=== PATIENT | female | born 1985 | race Caucasian/White ===

== ENCOUNTER → 2017-09-18 11:06 | Outpatient (CLI) | payer MEDICAID, SELFPAY | PROVIDERS: Visit Provider Obstetrics & Gynecology | DX: R30.0 Dysuria (principal); T81.30XA Disruption of wound, unspecified, initial encounter; Y83.8 Other surgical procedures as the cause of abnormal reaction of the patient, or of later complication, without mention of misadventure at the time of the procedure; N99.81 Other intraoperative complications of genitourinary system; N13.2 Hydronephrosis with renal and ureteral calculous obstruction; R10.2 Pelvic and perineal pain; Z90.710 Acquired absence of both cervix and uterus | CPT/HCPCS: 11042; 87077; 87086; 87088; 87186; 99212; 99213; G0463 ==

== ENCOUNTER 2017-09-25 08:00 | Outpatient (RCR) | payer MEDICAID, SELFPAY ==
[2017-09-02 01:29] VITALS: BP 148/69; PULSE 108; RESP 16; TEMP 35.9; BMI 37.5
[2017-09-11 09:00] VITALS: BP 117/76; PULSE 102; RESP 18; TEMP 37; BMI 37.5
--- NOTE | 2017-09-11 09:02 | WC ---
pt hospitalized after ER visit with fever . 2 kidney stones removed pt hospitaized from sep 02- 2017.
--- NOTE | 2017-09-11 13:52 | PCM.WC.PN ---
(1) Abdominal wound dehiscence Status: Acute Current Visit: Yes Qualifiers: Code(s): T81.30XA - Disruption of wound, unspecified, initial encounter (2) Postoperative wound dehiscence Status: Acute Current Visit: Yes Qualifiers: (3) Abdominal pain Status: Chronic Current Visit: Yes Qualifiers: Code(s): R10.9 - Unspecified abdominal pain (4) History of hysterectomy Status: Chronic Current Visit: No Code(s): Z90.710 - Acquired absence of both cervix and uterus (5) Intraoperative injury of ureter Status: Chronic Current Visit: No Code(s): N99.81 - Other intraoperative complications of genitourinary system (6) Pelvic pain Status: Chronic Current Visit: No Code(s): R10.2 - Pelvic and perineal pain Type of Wound Date of Service: 09/11/17 Chief Complaint: Post Surgical Abdominal Wound History of Wound: Ms. Laboy is a 31-year-old with past medical history of familial adenomatous polyposis and abnormal uterine bleed status post hysterectomy. Post hysterectomy, patient has have a repeat laparotomy due to postsurgical intraperitoneal infection complicated by sepsis. Repeat surgery was done by Dr. Shultz with repair of injured ureter. She has done well status post surgery. She had a wound VAC placed on discharge from the hospital. Initially on IV Zosyn however she was discharged on Augmentin with her last dose on 07/23. She denies chills, fever, foul-smelling discharge or drainage from the wound site, loss of appetite otherwise feeling of unwell. She is here for wound VAC and wound management. Progress of Wound: Ms. Laboy was last seen here on the 2016. During that visit, a new tiny tunelling was noted without any discharge. She however states that on the 01 of September, she noted increase in the size of the tunelling ( She however also reports that she had been engaged in more than normal activities as she had been moving lots of stuff ) and on the September she presented to the ER due to greenish discharge from the wound site/tunnel. She was also found to have hydronephrosis and nephrolithiasis. She was subsequently admitted to the [facility] and had stone removal with stent placement. She was also seen by her care rep and a general surgeon. Imaging done including a fistulogram was not suggestive of any enterocutaneous fistula and there was no discharge noted. She was discharged in stable condition and is currently on Keflex. She follows up with Dr. Lima. Last visit was 09/10 and per patient, there was greenish discharge on palpation. She however deneis chills or fever. - Physical Exam Vital Signs Temp Pulse Resp BP 98.6 F 102 H 18 117/76 09/11/17 09:00 09/11/17 09:00 09/11/17 09:00 09/11/17 09:00 General: Alert, Oriented x3, Cooperative, No apparent distress HEENT: Atraumatic, Normocephalic Oral: Moist Mucosa Neck: Supple Lungs: Normal air movement Cardiovascular: Tachycardic Abdomen: Soft, Obese, Tender Wound Measurements and Assessment - Nurse 1 - General Ulcer Measurement Start: 09/11/17 09:00 Freq: Status: Active Protocol: Activity Type Activity Date Activity User E-Sign Co-Sign Detail Recorded Client Recorded Date Recorded By Document 09/11/17 09:00 [id number] 09/11/17 09:14 RB 09/11/17 09:00 Wound Center Nurse 1 [Ulcer Assessment Protocol: MARILU.WD.LOC] #1 LOWER ABD SURGICAL INCISION -Combined with other wound No -Current Size (cm) - Length 2.2 -Current Size (cm) - Width 0.4 -Current Size (cm) - Depth 0.3 -Total Square Cm 0.88 -Photo Taken No -Epithelialization Small 1-33% -Tunneling No -Undermining/Tunneling No -Circular Undermining No -Classification - Thickness Full Thickness without Exposed Support Structure -Change in Wound Grade/Stage Yes Query Text:If change please identify the Stage/Grade in the comment (ie. S2 G3) -Exudate Amt Small (1-33%) -Exudate Type Serosanguineous -Wound Margin Distinct, Outline Attached -Granulation Amt Medium (34-66%) -Granulation Quality [place] -Slough/Fibrin Yes -Necrotic Tissue Type Adherent Slough -Structure Exposed N/A -Texture (Melodie-wound Skin Appearance) Assessed Scarring -Moisture (Melodie-wound Skin Appearance Assessed ) -Color (Melodie-wound Skin Appearance) Assessed -Temperature (Melodie-wound Skin No Abnormality Appearance) (Pt Warm) -Tenderness on Palpation (Melodie-wound No Skin Appearance) -Ulcer Cleansing Rinsed/ Irrigated with Saline -Foul Odor after Cleansing No -Anesthetic Used 4% Lidocaine Solution - Nurse 2 - General Ulcer CM Notes Start: 09/11/17 09:00 Freq: Status: Active Protocol: Activity Type Activity Date Activity User E-Sign Co-Sign Detail Recorded Client Recorded Date Recorded By Document 09/11/17 09:41 DV [id number] 09/11/17 09:50 DV 09/11/17 09:41 Wound Center Nurse 2 [Procedure/Treatment] -Time 09:48 -Correct Patient Yes -Correct Side, Site, Position Yes -Correct Procedure Yes -Procedure Performed Yes -Type of Procedure Debridement -Clinical Debridement Subcutaneous -Post Debridement Size (cm) - Length 2.0 -Post Debridement Size (cm) - Width 0.6 -Post Debridement Size (cm) - Depth 0.3 -Total Square Cm 1.20 -Wound/Ulcer Outcome Not Healed -Ulcer Cleansing Rinsed/ Irrigated with Saline -Foul Odor after Cleansing No -Bioengineered Tissue No -Cetacaine [place] No -Bleeding Controlled with Pressure -Treatment Response Procedure Tolerated Well [See Physician Procedure note for Specifics] Pain Scale: 0-10 Numeric [Pain] -Is Patient Pain Free? Yes Musculoskeletal: No Muscle Wasting Neurological: Cranial nerves II-XII grossly intact Psych/Mental Status: Normal Affect Debridement Note Post-Debridement Measurements/Treatment - Nurse 2 - General Ulcer CM Notes Start: 09/11/17 09:00 Freq: Status: Active Protocol: Activity Type Activity Date Activity User E-Sign Co-Sign Detail Recorded Client Recorded Date Recorded By Document 09/11/17 09:41 DV [id number] 09/11/17 09:50 DV 09/11/17 09:41 Wound Center Nurse 2 #1 LOWER ABD SURGICAL INCISION -Time 09:48 -Correct Patient Yes -Correct Side, Site, Position Yes -Correct Procedure Yes -Procedure Performed Yes -Type of Procedure Debridement -Clinical Debridement Subcutaneous -Post Debridement Size (cm) - Length 2.0 -Post Debridement Size (cm) - Width 0.6 -Post Debridement Size (cm) - Depth 0.3 -Total Square Cm 1.20 -Wound/Ulcer Outcome Not Healed -Ulcer Cleansing Rinsed/ Irrigated with Saline -Foul Odor after Cleansing No -Bioengineered Tissue No -Cetacaine [place] No -Bleeding Controlled with Pressure -Treatment Response Procedure Tolerated Well Pain Scale: 0-10 Numeric Is Patient Pain Free? Yes Type of Debridement: Excisional debridement Anesthesia Used: 4% Lidocaine Solution Depth: Down to and including healthy tissue, in the subcutaneous layer Percentage of wound debrided: 100 Instrument Used: 5mm curette Tissue Removed: Slough Amount of bleeding with debridement: Mild Bleeding Controlled with: Pressure Patient tolerated procedure well Assessment/Plan Active Problems (Last Reviewed 09/11/17 @ 10:34 by Jessica Dickerson) Abdominal pain (Chronic) Abdominal wound dehiscence (Acute) Postoperative wound dehiscence (Acute) Assessment: Postsurgical midline infraumbilical wound status post exploratory laparotomy. Surgical wound dehiscence. Plan: She is doing well s/p hospital discharge for conditions as stated in the HPI/progress note. She still follows up with Dr. Lima with last visit on 09/10. Per patient, she is scheduled to follow up with Dr. Shultz for Stent removal on . Wound debrided today,procedure was well tolerated. Wound was also probed, no tunelling present or discharge appreciated from the wound site. Wound size has consistently shown reduction. No obvious signs suggestive of infection. Continue daily dressing with aquacel with adaptic covering. Continue protein rich diet and supplement. Continue Vitamin C daily. Follow up in 1 week. This note was generated with [employer] dictation software. It may contain incorrect words, spelling, and punctuation that were not noted in checking the note before signing.
--- NOTE | 2017-09-11 14:09 | PN.PCM_ITS ---
(1) Abdominal wound dehiscence Status: Acute Current Visit: Yes Qualifiers: Code(s): T81.30XA - Disruption of wound, unspecified, initial encounter (2) Postoperative wound dehiscence Status: Acute Current Visit: Yes Qualifiers: (3) Abdominal pain Status: Chronic Current Visit: Yes Qualifiers: Code(s): R10.9 - Unspecified abdominal pain (4) History of hysterectomy Status: Chronic Current Visit: No Code(s): Z90.710 - Acquired absence of both cervix and uterus (5) Intraoperative injury of ureter Status: Chronic Current Visit: No Code(s): N99.81 - Other intraoperative complications of genitourinary system (6) Pelvic pain Status: Chronic Current Visit: No Code(s): R10.2 - Pelvic and perineal pain Type of Wound Date of Service: 09/11/17 Chief Complaint: Post Surgical Abdominal Wound History of Wound: Ms. Laboy is a 31-year-old with past medical history of familial adenomatous polyposis and abnormal uterine bleed status post hysterectomy. Post hysterectomy, patient has have a repeat laparotomy due to postsurgical intraperitoneal infection complicated by sepsis. Repeat surgery was done by Dr. Shultz with repair of injured ureter. She has done well status post surgery. She had a wound VAC placed on discharge from the hospital. Initially on IV Zosyn however she was discharged on Augmentin with her last dose on 07/23. She denies chills, fever, foul-smelling discharge or drainage from the wound site, loss of appetite otherwise feeling of unwell. She is here for wound VAC and wound management. Progress of Wound: Ms. Laboy was last seen here on the 2016. During that visit, a new tiny tunelling was noted without any discharge. She however states that on the 01 of September, she noted increase in the size of the tunelling ( She however also reports that she had been engaged in more than normal activities as she had been moving lots of stuff ) and on the September she presented to the ER due to greenish discharge from the wound site/tunnel. She was also found to have hydronephrosis and nephrolithiasis. She was subsequently admitted to the [facility] and had stone removal with stent placement. She was also seen by her stoper and a general surgeon. Imaging done including a fistulogram was not suggestive of any enterocutaneous fistula and there was no discharge noted. She was discharged in stable condition and is currently on Keflex. She follows up with Dr. Lima. Last visit was 09/10 and per patient, there was greenish discharge on palpation. She however deneis chills or fever. - Physical Exam Vital Signs Temp Pulse Resp BP 98.6 F 102 H 18 117/76 09/11/17 09:00 09/11/17 09:00 09/11/17 09:00 09/11/17 09:00 General: Alert, Oriented x3, Cooperative, No apparent distress HEENT: Atraumatic, Normocephalic Oral: Moist Mucosa Neck: Supple Lungs: Normal air movement Cardiovascular: Tachycardic Abdomen: Soft, Obese, Tender Wound Measurements and Assessment - Nurse 1 - General Ulcer Measurement Start: 09/11/17 09:00 Freq: Status: Active Protocol: Activity Type Activity Date Activity User E-Sign Co-Sign Detail Recorded Client Recorded Date Recorded By Document 09/11/17 09:00 [id number] 09/11/17 09:14 RB 09/11/17 09:00 Wound Center Nurse 1 [Ulcer Assessment Protocol: MARILU.WD.LOC] #1 LOWER ABD SURGICAL INCISION -Combined with other wound No -Current Size (cm) - Length 2.2 -Current Size (cm) - Width 0.4 -Current Size (cm) - Depth 0.3 -Total Square Cm 0.88 -Photo Taken No -Epithelialization Small 1-33% -Tunneling No -Undermining/Tunneling No -Circular Undermining No -Classification - Thickness Full Thickness without Exposed Support Structure -Change in Wound Grade/Stage Yes Query Text:If change please identify the Stage/Grade in the comment (ie. S2 G3) -Exudate Amt Small (1-33%) -Exudate Type Serosanguineous -Wound Margin Distinct, Outline Attached -Granulation Amt Medium (34-66%) -Granulation Quality [place] -Slough/Fibrin Yes -Necrotic Tissue Type Adherent Slough -Structure Exposed N/A -Texture (Melodie-wound Skin Appearance) Assessed Scarring -Moisture (Melodie-wound Skin Appearance Assessed ) -Color (Melodie-wound Skin Appearance) Assessed -Temperature (Melodie-wound Skin No Abnormality Appearance) (Pt Warm) -Tenderness on Palpation (Melodie-wound No Skin Appearance) -Ulcer Cleansing Rinsed/ Irrigated with Saline -Foul Odor after Cleansing No -Anesthetic Used 4% Lidocaine Solution - Nurse 2 - General Ulcer CM Notes Start: 09/11/17 09:00 Freq: Status: Active Protocol: Activity Type Activity Date Activity User E-Sign Co-Sign Detail Recorded Client Recorded Date Recorded By Document 09/11/17 09:41 DV [id number] 09/11/17 09:50 DV 09/11/17 09:41 Wound Center Nurse 2 [Procedure/Treatment] -Time 09:48 -Correct Patient Yes -Correct Side, Site, Position Yes -Correct Procedure Yes -Procedure Performed Yes -Type of Procedure Debridement -Clinical Debridement Subcutaneous -Post Debridement Size (cm) - Length 2.0 -Post Debridement Size (cm) - Width 0.6 -Post Debridement Size (cm) - Depth 0.3 -Total Square Cm 1.20 -Wound/Ulcer Outcome Not Healed -Ulcer Cleansing Rinsed/ Irrigated with Saline -Foul Odor after Cleansing No -Bioengineered Tissue No -Cetacaine [place] No -Bleeding Controlled with Pressure -Treatment Response Procedure Tolerated Well [See Physician Procedure note for Specifics] Pain Scale: 0-10 Numeric [Pain] -Is Patient Pain Free? Yes Musculoskeletal: No Muscle Wasting Neurological: Cranial nerves II-XII grossly intact Psych/Mental Status: Normal Affect Debridement Note Post-Debridement Measurements/Treatment - Nurse 2 - General Ulcer CM Notes Start: 09/11/17 09:00 Freq: Status: Active Protocol: Activity Type Activity Date Activity User E-Sign Co-Sign Detail Recorded Client Recorded Date Recorded By Document 09/11/17 09:41 DV [id number] 09/11/17 09:50 DV 09/11/17 09:41 Wound Center Nurse 2 #1 LOWER ABD SURGICAL INCISION -Time 09:48 -Correct Patient Yes -Correct Side, Site, Position Yes -Correct Procedure Yes -Procedure Performed Yes -Type of Procedure Debridement -Clinical Debridement Subcutaneous -Post Debridement Size (cm) - Length 2.0 -Post Debridement Size (cm) - Width 0.6 -Post Debridement Size (cm) - Depth 0.3 -Total Square Cm 1.20 -Wound/Ulcer Outcome Not Healed -Ulcer Cleansing Rinsed/ Irrigated with Saline -Foul Odor after Cleansing No -Bioengineered Tissue No -Cetacaine [place] No -Bleeding Controlled with Pressure -Treatment Response Procedure Tolerated Well Pain Scale: 0-10 Numeric Is Patient Pain Free? Yes Type of Debridement: Excisional debridement Anesthesia Used: 4% Lidocaine Solution Depth: Down to and including healthy tissue, in the subcutaneous layer Percentage of wound debrided: 100 Instrument Used: 5mm curette Tissue Removed: Slough Amount of bleeding with debridement: Mild Bleeding Controlled with: Pressure Patient tolerated procedure well Assessment/Plan Active Problems (Last Reviewed 09/11/17 @ 10:34 by Jessica Dickerson) Abdominal pain (Chronic) Abdominal wound dehiscence (Acute) Postoperative wound dehiscence (Acute) Assessment: Postsurgical midline infraumbilical wound status post exploratory laparotomy. Surgical wound dehiscence. Plan: She is doing well s/p hospital discharge for conditions as stated in the HPI/progress note. She still follows up with Dr. Lima with last visit on . Per patient, she is scheduled to follow up with Dr. Shultz for Stent removal on . Wound debrided today,procedure was well tolerated. Wound was also probed, no tunelling present or discharge appreciated from the wound site. Wound size has consistently shown reduction. No obvious signs suggestive of infection. Continue daily dressing with aquacel with adaptic covering. Continue protein rich diet and supplement. Continue Vitamin C daily. Follow up in 1 week. This note was generated with [employer] dictation software. It may contain incorrect words, spelling, and punctuation that were not noted in checking the note before signing.
[2017-09-18 08:16] VITALS: BMI 37.5
--- NOTE | 2017-09-18 08:45 | PCM.WC.PN ---
(1) Abdominal wound dehiscence Status: Acute Current Visit: Yes Qualifiers: Code(s): T81.30XA - Disruption of wound, unspecified, initial encounter (2) Postoperative wound dehiscence Status: Acute Current Visit: Yes Qualifiers: (3) Abdominal pain Status: Chronic Current Visit: Yes Qualifiers: Code(s): R10.9 - Unspecified abdominal pain (4) History of hysterectomy Status: Chronic Current Visit: No Code(s): Z90.710 - Acquired absence of both cervix and uterus (5) Intraoperative injury of ureter Status: Chronic Current Visit: No Code(s): N99.81 - Other intraoperative complications of genitourinary system (6) Pelvic pain Status: Chronic Current Visit: No Code(s): R10.2 - Pelvic and perineal pain Type of Wound Date of Service: 09/18/17 Chief Complaint: Post Surgical Abdominal Wound History of Wound: Ms. Laboy is a 31-year-old with past medical history of familial adenomatous polyposis and abnormal uterine bleed status post hysterectomy. Post hysterectomy, patient has have a repeat laparotomy due to postsurgical intraperitoneal infection complicated by sepsis. Repeat surgery was done by Dr. Shultz with repair of injured ureter. She has done well status post surgery. She had a wound VAC placed on discharge from the hospital. Initially on IV Zosyn however she was discharged on Augmentin with her last dose on 07/23. She denies chills, fever, foul-smelling discharge or drainage from the wound site, loss of appetite otherwise feeling of unwell. She is here for wound VAC and wound management. Progress of Wound: She has no new complaints at this time. Wound has done very well in the last week and is almost healed. She denies any more discharge from that site. She also denies chills, fever otherwise feeling of unwell. - Physical Exam Vital Signs Temp Pulse Resp BP 98.6 F 102 H 18 117/76 09/11/17 09:00 09/11/17 09:00 09/11/17 09:00 09/11/17 09:00 HEENT: Atraumatic, Normocephalic Oral: Moist Mucosa Neck: Supple Lungs: Normal air movement Cardiovascular: Regular rate Abdomen: Soft, Non Tender Extremities: No cyanosis Wound Measurements and Assessment WC - Nurse 1 - General Ulcer Measurement Start: 09/11/17 09:00 Freq: Status: Active Protocol: Activity Type Activity Date Activity User E-Sign Co-Sign Detail Recorded Client Recorded Date Recorded By Document 09/18/17 08:16 MW [id number] 09/18/17 08:24 MW 09/18/17 08:16 Wound Center Nurse 1 [Ulcer Assessment Protocol: WC.WD.LOC] #1 LOWER ABD SURGICAL INCISION -Combined with other wound No -Current Size (cm) - Length 0.2 -Current Size (cm) - Width 0.1 -Current Size (cm) - Depth 0.1 -Total Square Cm 0.02 -Date of Last Picture (Recall this 09/18/17 field) -Photo Taken Yes -Epithelialization Large 67-100% -Tunneling No -Undermining/Tunneling No -Circular Undermining No -Exudate Amt None Present (0 %) -Granulation Amt Small (1-33%) -Granulation Quality [place] -Slough/Fibrin Yes -Necrosis Amt Small (1-33%) -Necrotic Tissue Type Adherent Slough -Structure Exposed N/A -Texture (Melodie-wound Skin Appearance) Assessed Scarring -Moisture (Melodie-wound Skin Appearance No Abnormality ) Assessed -Color (Melodie-wound Skin Appearance) No Abnormality Assessed -Temperature (Melodie-wound Skin No Abnormality Appearance) (Pt Warm) -Tenderness on Palpation (Melodie-wound Yes Skin Appearance) -Ulcer Cleansing Rinsed/ Irrigated with Saline -Foul Odor after Cleansing No -Anesthetic Used 4% Lidocaine Solution [Edema Assessment] -Lower Limb Edema Present No - Nurse 2 - General Ulcer CM Notes Start: 09/11/17 09:00 Freq: Status: Active Protocol: Activity Type Activity Date Activity User E-Sign Co-Sign Detail Recorded Client Recorded Date Recorded By Document 09/18/17 08:42 DV [id number] 09/18/17 08:43 DV 09/18/17 08:42 Wound Center Nurse 2 [Procedure/Treatment] #1 LOWER ABD SURGICAL INCISION -Time 08:42 -Correct Patient Yes -Correct Side, Site, Position Yes -Procedure Performed No -Post Debridement Size (cm) - Length 0.2 -Post Debridement Size (cm) - Width 0.1 -Post Debridement Size (cm) - Depth 0.1 -Total Square Cm 0.02 -Wound/Ulcer Outcome Not Healed -Bleeding Controlled with NA [See Physician Procedure note for Specifics] Pain Scale: 0-10 Numeric [Pain] -Is Patient Pain Free? Yes Musculoskeletal: No Muscle Wasting Neurological: Cranial nerves II-XII grossly intact Psych/Mental Status: Normal Affect Debridement Note Post-Debridement Measurements/Treatment WC - Nurse 2 - General Ulcer CM Notes Start: 09/11/17 09:00 Freq: Status: Active Protocol: Activity Type Activity Date Activity User E-Sign Co-Sign Detail Recorded Client Recorded Date Recorded By Document 09/11/17 09:41 DV [id number] 09/11/17 09:50 DV Document 09/18/17 08:42 DV [id number] 09/18/17 08:43 DV 09/11/17 09/18/17 09:41 08:42 Wound Center Nurse 2 #1 LOWER ABD SURGICAL INCISION -Time 09:48 08:42 -Correct Patient Yes Yes -Correct Side, Site, Position Yes Yes -Correct Procedure Yes -Procedure Performed Yes No -Type of Procedure Debridement -Clinical Debridement Subcutaneous -Post Debridement Size (cm) - Length 2.0 0.2 -Post Debridement Size (cm) - Width 0.6 0.1 -Post Debridement Size (cm) - Depth 0.3 0.1 -Total Square Cm 1.20 0.02 -Wound/Ulcer Outcome Not Healed Not Healed -Ulcer Cleansing Rinsed/ Irrigated with Saline -Foul Odor after Cleansing No -Bioengineered Tissue No -Cetacaine [place] No -Bleeding Controlled with Pressure NA -Treatment Response Procedure Tolerated Well Pain Scale: 0-10 Numeric Is Patient Pain Free? Yes Yes No debridement was completed today - Patient declined. Assessment/Plan Active Problems (Last Reviewed 09/11/17 @ 10:34 by Jessica Dickerson) Abdominal pain (Chronic) Abdominal wound dehiscence (Acute) Postoperative wound dehiscence (Acute) Assessment: Postsurgical midline infraumbilical wound status post exploratory laparotomy. Surgical wound dehiscence. Plan: Ms. Laboy has continued to do well. Wound is almost completely healed. Minimal superficial open left. No discharge appreciated. No debridement done per patient request. Continue dressing with aquacel with adaptic covering every other day. Continue protein rich diet and supplement. Continue Vitamin C daily. Follow up in 1 week. This note was generated with [employer] software. It may contain incorrect words, spelling, and punctuation that were not noted in checking the note before signing.
--- NOTE | 2017-09-18 08:50 | PN.PCM_ITS ---
(1) Abdominal wound dehiscence Status: Acute Current Visit: Yes Qualifiers: Code(s): T81.30XA - Disruption of wound, unspecified, initial encounter (2) Postoperative wound dehiscence Status: Acute Current Visit: Yes Qualifiers: (3) Abdominal pain Status: Chronic Current Visit: Yes Qualifiers: Code(s): R10.9 - Unspecified abdominal pain (4) History of hysterectomy Status: Chronic Current Visit: No Code(s): Z90.710 - Acquired absence of both cervix and uterus (5) Intraoperative injury of ureter Status: Chronic Current Visit: No Code(s): N99.81 - Other intraoperative complications of genitourinary system (6) Pelvic pain Status: Chronic Current Visit: No Code(s): R10.2 - Pelvic and perineal pain Type of Wound Date of Service: 09/18/17 Chief Complaint: Post Surgical Abdominal Wound History of Wound: Ms. Laboy is a 31-year-old with past medical history of familial adenomatous polyposis and abnormal uterine bleed status post hysterectomy. Post hysterectomy, patient has have a repeat laparotomy due to postsurgical intraperitoneal infection complicated by sepsis. Repeat surgery was done by Dr. Shultz with repair of injured ureter. She has done well status post surgery. She had a wound VAC placed on discharge from the hospital. Initially on IV Zosyn however she was discharged on Augmentin with her last dose on 07/23. She denies chills, fever, foul-smelling discharge or drainage from the wound site, loss of appetite otherwise feeling of unwell. She is here for wound VAC and wound management. Progress of Wound: She has no new complaints at this time. Wound has done very well in the last week and is almost healed. She denies any more discharge from that site. She also denies chills, fever otherwise feeling of unwell. - Physical Exam Vital Signs Temp Pulse Resp BP 98.6 F 102 H 18 117/76 09/11/17 09:00 09/11/17 09:00 09/11/17 09:00 09/11/17 09:00 HEENT: Atraumatic, Normocephalic Oral: Moist Mucosa Neck: Supple Lungs: Normal air movement Cardiovascular: Regular rate Abdomen: Soft, Non Tender Extremities: No cyanosis Wound Measurements and Assessment WC - Nurse 1 - General Ulcer Measurement Start: 09/11/17 09:00 Freq: Status: Active Protocol: Activity Type Activity Date Activity User E-Sign Co-Sign Detail Recorded Client Recorded Date Recorded By Document 09/18/17 08:16 MW [id number] 09/18/17 08:24 MW 09/18/17 08:16 Wound Center Nurse 1 [Ulcer Assessment Protocol: WC.WD.LOC] #1 LOWER ABD SURGICAL INCISION -Combined with other wound No -Current Size (cm) - Length 0.2 -Current Size (cm) - Width 0.1 -Current Size (cm) - Depth 0.1 -Total Square Cm 0.02 -Date of Last Picture (Recall this 09/18/17 field) -Photo Taken Yes -Epithelialization Large 67-100% -Tunneling No -Undermining/Tunneling No -Circular Undermining No -Exudate Amt None Present (0 %) -Granulation Amt Small (1-33%) -Granulation Quality [place] -Slough/Fibrin Yes -Necrosis Amt Small (1-33%) -Necrotic Tissue Type Adherent Slough -Structure Exposed N/A -Texture (Melodie-wound Skin Appearance) Assessed Scarring -Moisture (Melodie-wound Skin Appearance No Abnormality ) Assessed -Color (Melodie-wound Skin Appearance) No Abnormality Assessed -Temperature (Melodie-wound Skin No Abnormality Appearance) (Pt Warm) -Tenderness on Palpation (Melodie-wound Yes Skin Appearance) -Ulcer Cleansing Rinsed/ Irrigated with Saline -Foul Odor after Cleansing No -Anesthetic Used 4% Lidocaine Solution [Edema Assessment] -Lower Limb Edema Present No - Nurse 2 - General Ulcer CM Notes Start: 09/11/17 09:00 Freq: Status: Active Protocol: Activity Type Activity Date Activity User E-Sign Co-Sign Detail Recorded Client Recorded Date Recorded By Document 09/18/17 08:42 DV [id number] 09/18/17 08:43 DV 09/18/17 08:42 Wound Center Nurse 2 [Procedure/Treatment] #1 LOWER ABD SURGICAL INCISION -Time 08:42 -Correct Patient Yes -Correct Side, Site, Position Yes -Procedure Performed No -Post Debridement Size (cm) - Length 0.2 -Post Debridement Size (cm) - Width 0.1 -Post Debridement Size (cm) - Depth 0.1 -Total Square Cm 0.02 -Wound/Ulcer Outcome Not Healed -Bleeding Controlled with NA [See Physician Procedure note for Specifics] Pain Scale: 0-10 Numeric [Pain] -Is Patient Pain Free? Yes Musculoskeletal: No Muscle Wasting Neurological: Cranial nerves II-XII grossly intact Psych/Mental Status: Normal Affect Debridement Note Post-Debridement Measurements/Treatment WC - Nurse 2 - General Ulcer CM Notes Start: 09/11/17 09:00 Freq: Status: Active Protocol: Activity Type Activity Date Activity User E-Sign Co-Sign Detail Recorded Client Recorded Date Recorded By Document 09/11/17 09:41 DV [id number] 09/11/17 09:50 DV Document 09/18/17 08:42 DV [id number] 09/18/17 08:43 DV 09/11/17 09/18/17 09:41 08:42 Wound Center Nurse 2 #1 LOWER ABD SURGICAL INCISION -Time 09:48 08:42 -Correct Patient Yes Yes -Correct Side, Site, Position Yes Yes -Correct Procedure Yes -Procedure Performed Yes No -Type of Procedure Debridement -Clinical Debridement Subcutaneous -Post Debridement Size (cm) - Length 2.0 0.2 -Post Debridement Size (cm) - Width 0.6 0.1 -Post Debridement Size (cm) - Depth 0.3 0.1 -Total Square Cm 1.20 0.02 -Wound/Ulcer Outcome Not Healed Not Healed -Ulcer Cleansing Rinsed/ Irrigated with Saline -Foul Odor after Cleansing No -Bioengineered Tissue No -Cetacaine [place] No -Bleeding Controlled with Pressure NA -Treatment Response Procedure Tolerated Well Pain Scale: 0-10 Numeric Is Patient Pain Free? Yes Yes No debridement was completed today - Patient declined. Assessment/Plan Active Problems (Last Reviewed 09/11/17 @ 10:34 by Jessica Dickerson) Abdominal pain (Chronic) Abdominal wound dehiscence (Acute) Postoperative wound dehiscence (Acute) Assessment: Postsurgical midline infraumbilical wound status post exploratory laparotomy. Surgical wound dehiscence. Plan: Ms. Laboy has continued to do well. Wound is almost completely healed. Minimal superficial open left. No discharge appreciated. No debridement done per patient request. Continue dressing with aquacel with adaptic covering every other day. Continue protein rich diet and supplement. Continue Vitamin C daily. Follow up in 1 week. This note was generated with [employer] software. It may contain incorrect words, spelling, and punctuation that were not noted in checking the note before signing.
[2017-09-25 08:12] VITALS: BP 146/82; PULSE 92; RESP 18; TEMP 37.4; BMI 37.5
--- NOTE | 2017-09-25 08:31 | PCM.WC.PN ---
(1) Abdominal wound dehiscence Status: Acute Current Visit: Yes Qualifiers: Code(s): T81.30XA - Disruption of wound, unspecified, initial encounter (2) Postoperative wound dehiscence Status: Acute Current Visit: Yes Qualifiers: (3) Abdominal pain Status: Chronic Current Visit: Yes Qualifiers: Code(s): R10.9 - Unspecified abdominal pain (4) History of hysterectomy Status: Chronic Current Visit: No Code(s): Z90.710 - Acquired absence of both cervix and uterus (5) Intraoperative injury of ureter Status: Chronic Current Visit: No Code(s): N99.81 - Other intraoperative complications of genitourinary system (6) Pelvic pain Status: Chronic Current Visit: No Code(s): R10.2 - Pelvic and perineal pain Type of Wound Date of Service: 09/25/17 Chief Complaint: Post Surgical Abdominal Wound History of Wound: Ms. Laboy is a 31-year-old with past medical history of familial adenomatous polyposis and abnormal uterine bleed status post hysterectomy. Post hysterectomy, patient has have a repeat laparotomy due to postsurgical intraperitoneal infection complicated by sepsis. Repeat surgery was done by Dr. Shultz with repair of injured ureter. She has done well status post surgery. She had a wound VAC placed on discharge from the hospital. Initially on IV Zosyn however she was discharged on Augmentin with her last dose on 07/23. She denies chills, fever, foul-smelling discharge or drainage from the wound site, loss of appetite otherwise feeling of unwell. She is here for wound VAC and wound management. Progress of Wound: Healed! - Physical Exam Vital Signs Temp Pulse Resp BP 99.3 F H 92 18 146/82 H 09/25/17 08:12 09/25/17 08:12 09/25/17 08:12 09/25/17 08:12 General: Alert, Oriented x3, Cooperative, No apparent distress HEENT: Atraumatic, Normocephalic Oral: Moist Mucosa Neck: Supple, No JVD Lungs: Clear to auscultation, Normal air movement Cardiovascular: Regular rate, Regular Rhythm, Normal S1, Normal S2 Abdomen: Soft, Non Tender, Obese, - - Lower abdominal wound healed. Extremities: No clubbing, No cyanosis Wound Measurements and Assessment WC - Nurse 1 - General Ulcer Measurement Start: 09/11/17 09:00 Freq: Status: Active Protocol: Activity Type Activity Date Activity User E-Sign Co-Sign Detail Recorded Client Recorded Date Recorded By Document 09/25/17 08:12 MW [id number] 09/25/17 08:16 MW 09/25/17 08:12 Wound Center Nurse 1 [Ulcer Assessment Protocol: WC.WD.LOC] #1 LOWER ABD SURGICAL INCISION -Combined with other wound No -Date of Last Picture (Recall this 09/25/17 field) -Photo Taken Yes -Epithelialization Large 67-100% -Tunneling No -Undermining/Tunneling No -Circular Undermining No -Exudate Amt None Present (0 %) -Granulation Amt None Present (0 %) -Granulation Quality N/A -Slough/Fibrin No -Texture (Melodie-wound Skin Appearance) Assessed Scarring -Moisture (Melodie-wound Skin Appearance No Abnormality ) Assessed -Color (Melodie-wound Skin Appearance) No Abnormality Assessed -Temperature (Melodie-wound Skin No Abnormality Appearance) (Pt Warm) -Tenderness on Palpation (Melodie-wound No Skin Appearance) -Ulcer Cleansing Not Cleansed [Edema Assessment] -Lower Limb Edema Present No WC - Nurse 2 - General Ulcer CM Notes Start: 09/11/17 09:00 Freq: Status: Active Protocol: Activity Type Activity Date Activity User E-Sign Co-Sign Detail Recorded Client Recorded Date Recorded By Document 09/25/17 08:23 DV [id number] 09/25/17 08:27 DV 09/25/17 08:23 Wound Center Nurse 2 [Procedure/Treatment] #1 LOWER ABD SURGICAL INCISION -Time 08:24 -Procedure Performed No -Post Debridement Size (cm) - Length 0 -Post Debridement Size (cm) - Width 0 -Post Debridement Size (cm) - Depth 0 -Total Square Cm 0 -Wound/Ulcer Outcome Healed- Epithelialized [See Physician Procedure note for Specifics] Pain Scale: 0-10 Numeric [Pain] -Is Patient Pain Free? Yes Musculoskeletal: No Muscle Wasting Neurological: Cranial nerves II-XII grossly intact Psych/Mental Status: Normal Affect Debridement Note Post-Debridement Measurements/Treatment WC - Nurse 2 - General Ulcer CM Notes Start: 09/11/17 09:00 Freq: Status: Active Protocol: Activity Type Activity Date Activity User E-Sign Co-Sign Detail Recorded Client Recorded Date Recorded By Document 09/11/17 09:41 DV [id number] 09/11/17 09:50 DV Document 09/18/17 08:42 DV [id number] 09/18/17 08:43 DV Document 09/25/17 08:23 DV [id number] 09/25/17 08:27 DV 09/11/17 09/18/17 09/25/17 09:41 08:42 08:23 Wound Center Nurse 2 #1 LOWER ABD SURGICAL INCISION -Time 09:48 08:42 08:24 -Correct Patient Yes Yes -Correct Side, Site, Position Yes Yes -Correct Procedure Yes -Procedure Performed Yes No No -Type of Procedure Debridement -Clinical Debridement Subcutaneous -Post Debridement Size (cm) - Length 2.0 0.2 0 -Post Debridement Size (cm) - Width 0.6 0.1 0 -Post Debridement Size (cm) - Depth 0.3 0.1 0 -Total Square Cm 1.20 0.02 0 -Wound/Ulcer Outcome Not Healed Not Healed Healed- Epithelialized -Ulcer Cleansing Rinsed/ Irrigated with Saline -Foul Odor after Cleansing No -Bioengineered Tissue No -Cetacaine [place] No -Bleeding Controlled with Pressure NA -Treatment Response Procedure Tolerated Well Pain Scale: 0-10 Numeric Is Patient Pain Free? Yes Yes Yes No debridement was completed today Assessment/Plan Active Problems (Last Reviewed 09/11/17 @ 10:34 by Jessica Dickerson) Abdominal pain (Chronic) Abdominal wound dehiscence (Acute) Postoperative wound dehiscence (Acute) Assessment: Postsurgical midline infraumbilical wound status post exploratory laparotomy. Surgical wound dehiscence. Plan: Lower Abdominal wound has healed. She also currently denies any abdominal pain. She continues to follow up with and [facility]. She is scheduled to return to work. She was advised on minimal lifting and abdominal pressure. Counselled against putting substance over the healed abdominal wound site. Discharged from the wound clinic. This note was generated with [employer] dictation software. It may contain incorrect words, spelling, and punctuation that were not noted in checking the note before signing.
--- NOTE | 2017-09-25 08:37 | PN.PCM_ITS ---
(1) Abdominal wound dehiscence Status: Acute Current Visit: Yes Qualifiers: Code(s): T81.30XA - Disruption of wound, unspecified, initial encounter (2) Postoperative wound dehiscence Status: Acute Current Visit: Yes Qualifiers: (3) Abdominal pain Status: Chronic Current Visit: Yes Qualifiers: Code(s): R10.9 - Unspecified abdominal pain (4) History of hysterectomy Status: Chronic Current Visit: No Code(s): Z90.710 - Acquired absence of both cervix and uterus (5) Intraoperative injury of ureter Status: Chronic Current Visit: No Code(s): N99.81 - Other intraoperative complications of genitourinary system (6) Pelvic pain Status: Chronic Current Visit: No Code(s): R10.2 - Pelvic and perineal pain Type of Wound Date of Service: 09/25/17 Chief Complaint: Post Surgical Abdominal Wound History of Wound: Ms. Laboy is a 31-year-old with past medical history of familial adenomatous polyposis and abnormal uterine bleed status post hysterectomy. Post hysterectomy, patient has have a repeat laparotomy due to postsurgical intraperitoneal infection complicated by sepsis. Repeat surgery was done by Dr. Shultz with repair of injured ureter. She has done well status post surgery. She had a wound VAC placed on discharge from the hospital. Initially on IV Zosyn however she was discharged on Augmentin with her last dose on 07/23. She denies chills, fever, foul-smelling discharge or drainage from the wound site, loss of appetite otherwise feeling of unwell. She is here for wound VAC and wound management. Progress of Wound: Healed! - Physical Exam Vital Signs Temp Pulse Resp BP 99.3 F H 92 18 146/82 H 09/25/17 08:12 09/25/17 08:12 09/25/17 08:12 09/25/17 08:12 General: Alert, Oriented x3, Cooperative, No apparent distress HEENT: Atraumatic, Normocephalic Oral: Moist Mucosa Neck: Supple, No JVD Lungs: Clear to auscultation, Normal air movement Cardiovascular: Regular rate, Regular Rhythm, Normal S1, Normal S2 Abdomen: Soft, Non Tender, Obese, - - Lower abdominal wound healed. Extremities: No clubbing, No cyanosis Wound Measurements and Assessment WC - Nurse 1 - General Ulcer Measurement Start: 09/11/17 09:00 Freq: Status: Active Protocol: Activity Type Activity Date Activity User E-Sign Co-Sign Detail Recorded Client Recorded Date Recorded By Document 09/25/17 08:12 MW [id number] 09/25/17 08:16 MW 09/25/17 08:12 Wound Center Nurse 1 [Ulcer Assessment Protocol: WC.WD.LOC] #1 LOWER ABD SURGICAL INCISION -Combined with other wound No -Date of Last Picture (Recall this 09/25/17 field) -Photo Taken Yes -Epithelialization Large 67-100% -Tunneling No -Undermining/Tunneling No -Circular Undermining No -Exudate Amt None Present (0 %) -Granulation Amt None Present (0 %) -Granulation Quality N/A -Slough/Fibrin No -Texture (Melodie-wound Skin Appearance) Assessed Scarring -Moisture (Melodie-wound Skin Appearance No Abnormality ) Assessed -Color (Melodie-wound Skin Appearance) No Abnormality Assessed -Temperature (Melodie-wound Skin No Abnormality Appearance) (Pt Warm) -Tenderness on Palpation (Melodie-wound No Skin Appearance) -Ulcer Cleansing Not Cleansed [Edema Assessment] -Lower Limb Edema Present No WC - Nurse 2 - General Ulcer CM Notes Start: 09/11/17 09:00 Freq: Status: Active Protocol: Activity Type Activity Date Activity User E-Sign Co-Sign Detail Recorded Client Recorded Date Recorded By Document 09/25/17 08:23 DV [id number] 09/25/17 08:27 DV 09/25/17 08:23 Wound Center Nurse 2 [Procedure/Treatment] #1 LOWER ABD SURGICAL INCISION -Time 08:24 -Procedure Performed No -Post Debridement Size (cm) - Length 0 -Post Debridement Size (cm) - Width 0 -Post Debridement Size (cm) - Depth 0 -Total Square Cm 0 -Wound/Ulcer Outcome Healed- Epithelialized [See Physician Procedure note for Specifics] Pain Scale: 0-10 Numeric [Pain] -Is Patient Pain Free? Yes Musculoskeletal: No Muscle Wasting Neurological: Cranial nerves II-XII grossly intact Psych/Mental Status: Normal Affect Debridement Note Post-Debridement Measurements/Treatment WC - Nurse 2 - General Ulcer CM Notes Start: 09/11/17 09:00 Freq: Status: Active Protocol: Activity Type Activity Date Activity User E-Sign Co-Sign Detail Recorded Client Recorded Date Recorded By Document 09/11/17 09:41 DV [id number] 09/11/17 09:50 DV Document 09/18/17 08:42 DV [id number] 09/18/17 08:43 DV Document 09/25/17 08:23 DV [id number] 09/25/17 08:27 DV 09/11/17 09/18/17 09/25/17 09:41 08:42 08:23 Wound Center Nurse 2 #1 LOWER ABD SURGICAL INCISION -Time 09:48 08:42 08:24 -Correct Patient Yes Yes -Correct Side, Site, Position Yes Yes -Correct Procedure Yes -Procedure Performed Yes No No -Type of Procedure Debridement -Clinical Debridement Subcutaneous -Post Debridement Size (cm) - Length 2.0 0.2 0 -Post Debridement Size (cm) - Width 0.6 0.1 0 -Post Debridement Size (cm) - Depth 0.3 0.1 0 -Total Square Cm 1.20 0.02 0 -Wound/Ulcer Outcome Not Healed Not Healed Healed- Epithelialized -Ulcer Cleansing Rinsed/ Irrigated with Saline -Foul Odor after Cleansing No -Bioengineered Tissue No -Cetacaine [place] No -Bleeding Controlled with Pressure NA -Treatment Response Procedure Tolerated Well Pain Scale: 0-10 Numeric Is Patient Pain Free? Yes Yes Yes No debridement was completed today Assessment/Plan Active Problems (Last Reviewed 09/11/17 @ 10:34 by Jessica Dickerson) Abdominal pain (Chronic) Abdominal wound dehiscence (Acute) Postoperative wound dehiscence (Acute) Assessment: Postsurgical midline infraumbilical wound status post exploratory laparotomy. Surgical wound dehiscence. Plan: Lower Abdominal wound has healed. She also currently denies any abdominal pain. She continues to follow up with and [facility]. She is scheduled to return to work. She was advised on minimal lifting and abdominal pressure. Counselled against putting substance over the healed abdominal wound site. Discharged from the wound clinic. This note was generated with [employer] dictation software. It may contain incorrect words, spelling, and punctuation that were not noted in checking the note before signing.
== END 2017-10-02 23:59 ==
LOC: WC 08:00
PROVIDERS: Family Provider Family Medicine; PCP Family Medicine; Visit Provider Internal Medicine
DX: T81.30XA Disruption of wound, unspecified, initial encounter (principal); Y83.8 Other surgical procedures as the cause of abnormal reaction of the patient, or of later complication, without mention of misadventure at the time of the procedure; R30.0 Dysuria; N99.81 Other intraoperative complications of genitourinary system; R10.2 Pelvic and perineal pain; Z90.710 Acquired absence of both cervix and uterus; N13.2 Hydronephrosis with renal and ureteral calculous obstruction
CPT/HCPCS: 11042; 99212; 99213; G0463

== ENCOUNTER → 2017-10-04 17:11 | Outpatient (CLI) | payer MEDICAID, SELFPAY | PROVIDERS: Visit Provider Obstetrics & Gynecology | DX: R30.0 Dysuria (principal) | CPT/HCPCS: 87086; 87088 ==

== ENCOUNTER → 2017-10-07 08:55 | Outpatient (CLI) | payer MEDICAID, SELFPAY ==
[2017-09-25 08:12] VITALS: BP 146/82; BMI 37.5
--- NOTE | 2017-10-07 08:57 | CT_ITS ---
STUDY: CT ABDOMEN WITH CONTRAST REASON FOR EXAM: Female, 31 years old. Abdominal pain. RADIATION DOSAGE (If Supplied By Facility): CTDIvol = ( 13.54 ) mGy, DLP = ( 728.19 ) mGycm TECHNIQUE: Transaxial images were obtained post I.V. administration of 100 ml of Isovue 300 contrast, and with oral contrast. Sagittal and coronal images were reconstructed. Individualized dose optimization techniques were used for this CT. COMPARISON: Comparison is made with prior study dated September 03, 2017. FINDINGS: The visualized lung bases are unremarkable. The visualized portions of the heart are within normal limits. Normal liver. The gallbladder is contracted. Normal spleen. Normal pancreas. Normal bilateral adrenal glands. Normal right kidney. Normal left kidney. Normal visualized stomach. Normal small intestine. Normal colon. The appendix is visualized and appears normal. Normal abdominal aorta. Normal inferior vena cava. Normal retroperitoneum. There is evidence of a midline ventral hernia containing fat. The neck of the hernia measures 3.8 cm. This is cephalad to the umbilicus. At the level of the umbilicus, there is evidence of focal herniation containing nondilated small bowel loops. Normal osseous structures. CT/Abdomen WITH IV Contrast IMPRESSION: Ventral hernia as described. Electronically Signed: Darren Juárez MD at 11:03 EST Tel [phone], Service support ,
== END ==
PROVIDERS: Family Provider Family Medicine; PCP Family Medicine; Visit Provider Obstetrics & Gynecology
DX: K43.9 Ventral hernia without obstruction or gangrene (principal); K42.9 Umbilical hernia without obstruction or gangrene; R10.9 Unspecified abdominal pain
CPT/HCPCS: 74160; Q9967

== ENCOUNTER 2017-11-19 16:27 | Observation (INO) | payer MEDICAID, SELFPAY ==
[2017-11-19 16:28] VITALS: BP 149/100; PULSE 106; RESP 15; TEMP 36.4; O2SAT 100; BMI 36.2
--- NOTE | 2017-11-19 17:46 | CT_ITS ---
STUDY: CT ABDOMEN AND PELVIS WITHOUT CONTRAST REASON FOR EXAM: Female, 32 years old. Right flank pain. Status post ureter repair RADIATION DOSAGE (If Supplied By Facility): CTDIvol = ( 14.54 ) mGy, DLP = ( 704.84 ) mGycm TECHNIQUE: Transaxial images were obtained from the dome of the diaphragm to the symphysis pubis without oral contrast, and without intravenous contrast. Sagittal and coronal images were reconstructed. Individualized dose optimization techniques were used for this CT. COMPARISON: None. FINDINGS: The visualized lung bases are unremarkable. The visualized portions of the heart are within normal limits. Normal liver. There are surgical clips in the gallbladder fossa consistent with a prior cholecystectomy. Normal spleen. Normal pancreas. Normal bilateral adrenal glands. Moderate to severe right hydronephrosis and right hydroureter. No discrete stones. There appears to be abrupt caliber change in the lower pelvic region. Left midpole nonobstructing nephrolith measuring 6 mm, otherwise unremarkable left kidney. Normal visualized stomach. Normal small intestine. Status post partial rectosigmoid resection, otherwise unremarkable colon. There is non-visualization of the appendix. Normal abdominal aorta. Normal inferior vena cava. Normal retroperitoneum. Normal urinary bladder. There is absence of the uterus consistent with a prior hysterectomy. Stable postsurgical changes involving the anterior abdominal wall. Normal osseous structures. CT/Abdomen/Pelvis without Cont IMPRESSION: Severe right hydronephrosis and right hydroureter without discrete stones. This may be related to given history of right ureter injury with repair. Nonobstructing left nephrolithiasis. Remainder is unchanged. Electronically Signed: Philippe Smith DO at 19:20 EDT Tel , Service support ,
[2017-11-19 18:07] LABS: Absolute Lymphocyte Count 1.36 X10^3/ul (0.83-4.51); Absolute Neutrophil Count 4.6 X10^3/uL (2.0-7.7); Basophil# 0.01 X10^3/uL; Basophil% 0.2 % (0-1); Eosinophil# 0.02 X10^3/uL; Eosinophils% 0.3 % (0-5); Hemoglobin 15.1 g/dl (12.0-15.0); Lymphocyte # 1.36 X10^3/ul (4.0); Lymphocyte % 21.2 % (19-41); Mean Corp Hgb Conc 33.6 g/gl (32-36); Mean Corpuscular Hgb 29.9 pg (27.0-32.0); Mean Corpuscular Volume 89.1 fL (81-99); Mean Platelet Vol. 9.8 fl (6.2-12.0); Monocyte# 0.45 X10^3/uL; Neutrophil # 4.56 X10^3/uL (2.7-7.7); Neutrophil % 71.1 % (47-70); POSITIVE COUNT NO; POSITIVE DIFFERENTIAL NO; POSITIVE MORPHOLOGY NO; Platelet Count 198 K/mm3 (150-450); RBC Distribution Width CV 14.6 % (11.6-14.6); RBC Distribution Width SD 47.6 fl (35.1-43.9); Red Blood Count 5.05 M/mm3 (4.2-5.4); White Blood Count 6.4 K/mm3 (4.4-11.0)
[2017-11-19] MEDS: Ondansetron 4 MG/2 ML Vial IV (18:10)
[2017-11-19] MEDS: HYDROmorphone 1 MG/ML Syringe IV ×2 (18:11→20:09)
[2017-11-19] MEDS: 0.9% Normal Saline 1,000 ML 125 ML IV (18:11)
[2017-11-19] MEDS: Ketorolac 30 MG/ML Syringe IV (18:11)
[2017-11-19 18:15] LABS: Bacteria 0 SEEN /hpf (None Seen); Mucous, Urine 0 SEEN /hpf (<or=2+)
[2017-11-19 18:18] LABS: Color, Urine Yellow (Yellow); Glucose, Dipstick Normal (Normal); Ketone-Dipstick Negative (Negative); Leukocyte Esterase-Dipstick 100 /ul (Negative); Nitrite-Dipstick Negative (Negative); Occult Blood-Urine 10 /ul (Negative); Protein-Dipstick 15 mg/dl (Negative); Specific Gravity, Urine 1.015 (1.002-1.030); Urine Bilirubin Dipstick Negative (Negative); Urine Clarity Clear (Clear); Urine Urobilinogen Normal (Normal); Urine pH 6.5 (5.0 - 8.0)
[2017-11-19 18:24] LABS: Anion Gap 6 (5-15); BUN 7 mg/dL (7-18); BUN/Creat Ratio 9.8 RATIO (10-20); Chloride 106 mmol/L (98-107); Creatinine, Serum 0.71 mg/dL (0.55-1.02); EST Glomerular Filtration Rate 101 mL/min (>60); Est Glom Filt Rate - Afr Amer 122 mL/min (>60); Estimated Creatinine Clearance 89.14 ml/min; Glucose 102 mg/dL (74-106); Potassium 3.5 mmol/L (3.5-5.1); Sodium Level 140 mmol/L (136-145)
[2017-11-19 18:28] LABS: Red Blood Cells-Urine 0-5 SEEN /hpf (0-5); Squamous Epithelial Cells - UA 5-10 SEEN /hpf (5-10); White Blood Cells 5-10 SEEN /hpf (0-5)
--- NOTE | 2017-11-19 19:44 | ED.DCSUM_ITS ---
- ER Visit Summary Date of Service: 11/19/17 Chief Complaint: [Right flank pain] History of Present Illness: The patient is a 32 F [presents to the emergency department with right-sided flank pain that started yesterday. Patient rates her pain an 8 out of 10. Patient complains of nausea but no vomiting. She denies diarrhea. Patient states she is urinating just very small amounts. Patient does have a history of kidney stones. Patient states that she had a ureteral transection during her hysterectomy in July 2017 and had to have her ureter repaired. Patient denies any fevers.] Physical Examination: [HEENT-PERRLA, EOMI. Cranial nerves II through XII grossly intact. TMs clear. Mucous membranes moist. No adenopathy. Cardiovascular-regular rate and rhythm without murmur or ectopy Lungs-clear to auscultation, chest wall stable without crepitus or subcu emphysema Abdomen-normoactive bowel sounds, soft. Patient has tenderness to the right lower quadrant and right flank. There is no rebound, rigidity, or perineal signs. Extremities-intact ?4, normal range of motion, normal pulses, atraumatic] Test Results: [CBC with differential showed a white count 6.4, hemoglobin 15, hematocrit 45, platelets 198. Chemistries were normal. Urinalysis showed 100 leukocyte esterase, 5-10 WBCs, [address] flank showed a severe right hydroureter and hydronephrosis. No kidney stones noted.] Emergency Department Course and Treatment: [Patient was medicated with Dilaudid and Zofran.] Treatment Plan: [Case was discussed with Dr.Miguel Shultz who will admit patient.] Disposition: [Admit] Impression: [Intractable right flank pain Right hydronephrosis and hydroureter suspect possibility of stricture] This note was generated with [employer] dictation software. It may contain incorrect words, spelling, and punctuation that were not noted in review of the chart prior to signing ED Disposition - Plan for ED Patient: Chief Complaint: Abd Pain Referrals: Song Ridley MD [Primary Care Provider] -
[2017-11-19 19:52] VITALS: BMI 36.2
[2017-11-19 20:09] VITALS: BP 130/79; PULSE 86; RESP 17; O2SAT 100
[2017-11-19 21:20] VITALS: BMI 36.4
[2017-11-19 22:10] VITALS: BP 134/78; PULSE 80; RESP 18; TEMP 36.6; O2SAT 97
[2017-11-19] MEDS: Gabapentin 300 MG Capsule PO (22:39)
[2017-11-19] MEDS: hydrOXYzine PAM 25 MG Capsule 50 MG PO (22:39)
[2017-11-19] MEDS: Sertraline 100 MG Tablet PO (22:39)
[2017-11-19] MEDS: 0.9% Normal Saline 1,000 ML 75 ML IV (22:39)
[2017-11-19] MEDS: HYDROmorphone 0.5 MG/0.5 ML SYRINGE IV (22:44)
[2017-11-20] VITALS (8 sets, daily range): BP systolic 99–134; BP diastolic 52–92; PULSE 64–87; RESP 16–18; TEMP 36.2–37.1; O2SAT 92–99
[2017-11-20] MEDS: HYDROmorphone 0.5 MG/0.5 ML SYRINGE IV ×7 (00:45→16:06)
[2017-11-20] MEDS: Ondansetron 4 MG/2 ML Vial IV (05:41)
--- NOTE | 2017-11-20 07:32 | PCM.HP.STD ---
Problem List (1) Hydronephrosis, right Status: Acute History of Present Illness Date of Admission: 11/20/17 Chief Complaint: New onset of right flank pain and right hydronephrosis The patient is a 32 year old female who earlier this year had a hysterectomy and had a injury to her distal ureter which required reimplantation of the ureter into the bladder. Patient was seen about a month ago and at that point CAT scan was done with no hydronephrosis she has been doing well no pain or discomfort she does have a history of kidney stones. Took a long time to heal from her injury to the ureter after surgery. She now presented to the emergency room with new onset of right hydronephrosis. On reviewing the CAT scan she has hydronephrosis hydroureter down to the bladder unclear what is causing the new hydronephrosis no clear stone seen patient was admitted for pain control. Past Medical History Past Medical History (Chronic Problems): Chronic Problems (Last Reviewed 09/11/17 @ 10:34 by Jessica Dickerson) Pelvic pain (Chronic) Pelvic pain (Chronic) Menometrorrhagia (Chronic) Dysmenorrhea (Chronic) Abdominal pain (Chronic) History of hysterectomy (Chronic) Intraoperative injury of ureter (Chronic) Allergies bupropion HCl [From Wellbutrin] Allergy (Verified 11/19/17 19:49) Hives carbamazepine [From Tegretol] Allergy (Verified 11/19/17 19:49) Hives morphine Adverse Reaction (Verified 11/19/17 19:49) Other PT REPORTS MAKES HER VERY IRRITABLE Home Medications: Ambulatory Orders Medication Instructions Recorded Acetaminophen [Tylenol] 325 mg PO Q4H PRN PRN 12/05/16 Hydroxyzine Pamoate [Vistaril] 50 mg PO BID PRN PRN 06/26/17 Sertraline HCl [Zoloft] 100 mg PO QHS 06/26/17 Ibuprofen [Motrin] 600 mg PO Q6H PRN 07/24/17 Gabapentin [Neurontin] 300 mg PO BIDCM 08/14/17 Cranberry Conc/Ascorbic Acid 2 ea PO DAILY 09/02/17 [Cranberry Plus Vitamin C Sftgl] Tamsulosin HCl [Flomax] 0.4 mg PO DAILY@1730 PRN 09/02/17 Surgical History: hysterectomy - [facility] 07/04/17, - - Exploratory laparotomy with reimplantation of right ureter Psychiatric History: No pertinent psych hx 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, - - Chronic pelvic pain Smoking Status: Former smoker - *Family History Maternal History Items: Asthma, No pertinent history Review of Systems Constitutional: Denies: Chills, Fever, Weight Change HEENT: Denies: Head Aches, Sinus Congestion, Sinus Drainage Cardiovascular: Denies: Chest Pain, Palpitations Respiratory: Denies: Cough, Shortness of breath at rest, Sputum production Gastrointestinal: Denies: Abdominal Pain, Nausea, Vomiting Genitourinary: Denies: Dysuria Musculoskeletal: Denies: Joint Pain, Joint Tenderness Skin: Denies: Rash, Wounds Neurological: Denies: Numbness, Tingling, Focal weakness Psychiatric: Denies: Anxiety, Depression, Homicidal Ideations, Suicidal Ideations Hematologic/ Lymphatic: Denies: Easy Bruising, Easy Bleeding VTE Information - Inpt Only VTE Present on Admission: No VTE Mechan Device Prophylaxis: SCD's Patient Problems: Active and Suspected Problems (Last Reviewed 09/11/17 @ 10:34 by Jessica Dickerson) Hydronephrosis, right (Acute) - Physical Exam General: Alert, Oriented x3, Cooperative HEENT: Atraumatic, PERRLA, EOMI, Normocephalic Neck: Supple, No JVD, Negative Carotid Bruits Lungs: Clear to auscultation, Normal air movement Cardiovascular: Regular rate, No murmurs Abdomen: Bowel Sounds Present, Soft, Non Tender Extremities: No edema, Capillary Refill Less than 3 Seconds Skin: No rashes, No breakdown Musculoskeletal: No Tenderness to Palpation of Joints or Extremities Neurological: Cranial nerves II-XII grossly intact Psych/Mental Status: Normal Affect, Appropriate Vital Signs Temp Pulse Resp BP Pulse Ox 98.7 F 76 18 108/63 99 11/20/17 04:35 11/20/17 04:35 11/20/17 04:35 11/20/17 04:35 11/20/17 04:35 Oxygen Delivery Method Room Air Weight: 89.811 kg Body Mass Index (BMI) 36.4 Intake and Output for Last 24 Hours 11/18/17 11/19/17 11/20/17 23:59 23:59 23:59 Intake Total 740 / 740 Output Total 300 / 300 Balance 440 / 440 Assessment/Plan Active and Suspected Problems (Last Reviewed 09/11/17 @ 10:34 by Jessica Dickerson) Hydronephrosis, right (Acute) 32-year-old female with new onset of right hydronephrosis no clear stone seen on CAT scan plan to take to the operating room today for cystoscopy possible balloon dilation and stent placement on the right side.
[2017-11-20] MEDS: 0.9% Normal Saline 1,000 ML 75 ML IV (07:58)
--- NOTE | 2017-11-20 08:11 | PCA ---
pt taken to AC by Matilda
--- NOTE | 2017-11-20 09:24 | NURSING ---
patient taken to surgery this morning at approximately 0815- off unit at this time.
--- NOTE | 2017-11-20 10:14 | PCM.OPRPT ---
Problem List (1) Hydronephrosis, right Status: Acute Report of Operation Date of Procedure: 11/20/17 Pre-Operative Diagnosis: Right hydronephrosis Post-Operative Diagnosis: Right hydronephrosis from a ureteral stricture at the anastomosis of the bladder Surgery/Procedure Performed:: Cystoscopy right retrograde pyelogram balloon dilation of the distal right ureter and placed a stent on the right. Description of Surgical Findings:: 32-year-old female who underwent a hysterectomy and ended up having sepsis abdominal ascites with infected abdomen secondary due to a transected ureter at the time then the patient underwent exploratory laparotomy we then did a re-anastomosis of the right ureter to the bladder. We left a catheter in place and the stent in place since then the patient is healed up she had a open wound from the infection in the midline abdomen without closed up. She had a stent removed and I did a follow-up CAT scan that demonstrated no hydronephrosis and a working right kidney. She then presented to the hospital with acute onset of right flank pain and new right hydronephrosis and no stone. So took the patient back to surgery today under general anesthesia. She underwent general anesthesia after smooth induction of anesthesia she was placed in dorsal lithotomy position went into the bladder with a 21 Bulgarian rigid cystourethroscope the entire length of the urethra is normal the bladder was normal left and right trigone area was normal up in the bladder the right side and the and the dome the implanted ureter was identified she had scarred down very pinpoint opening right at the anastomosis was able to get a wire through this I then put a balloon dilator 15 Bulgarian by 5 cm balloon dilator and balloon dilated the stricture we did this 3 times about a minute each after opening up the stricture then was able to see into the ureter nice and open ureter then did a retrograde pyelogram with a contrast going of the kidney and there was good drainage from the kidney but a wire up in the kidney and the but the stent 8.5 Bulgarian stent and 24 cm length and will leave the stent in for about 8 weeks to allow this area to heal and then will remove the stent in about 2 months. Type of Anesthesia:: General Drains: stent on right. - Admit VTE Documentation VTE Present on Admission: No VTE Mechan Device Prophylaxis: SCD's
[2017-11-20] MEDS: Gabapentin 300 MG Capsule PO ×2 (12:07→16:07)
--- NOTE | 2017-11-20 12:14 | NURSING ---
patient agitated that staff offering to give ensure. patient states she will not take it and does not want ordered. med d/c'ed
[2017-11-20] MEDS: Tamsulosin HCl 0.4 MG Capsule PO (16:10)
--- NOTE | 2017-11-20 17:37 | PCM.DC.URO ---
Discharge Diet: Light diet - advance as tolerated Discharge Activity: Return to Normal Activity, May not drive while taking narcotic pain medications. Return to work on:: 11/22/17 May shower in (days): 1 Call your doctor if you observe: Fever of 101 or Higher Allergies/Adverse Reactions: Allergies bupropion HCl [From Wellbutrin] Allergy (Verified 11/19/17 19:49) Hives carbamazepine [From Tegretol] Allergy (Verified 11/19/17 19:49) Hives morphine Adverse Reaction (Verified 11/19/17 19:49) Other PT REPORTS MAKES HER VERY IRRITABLE Medications to take at Discharge Acetaminophen [Tylenol] 325 mg PO Q4H PRN PRN 12/05/16 Hydroxyzine Pamoate [Vistaril] 50 mg PO BID PRN PRN 06/26/17 Sertraline HCl [Zoloft] 100 mg PO QHS 06/26/17 Ibuprofen [Motrin] 600 mg PO Q6H PRN 07/24/17 Gabapentin [Neurontin] 300 mg PO BIDCM 08/14/17 Cranberry Conc/Ascorbic Acid [Cranberry Plus Vitamin C Sftgl] 2 ea PO DAILY 09/02/17 Tamsulosin HCl [Flomax] 0.4 mg PO DAILY@1730 PRN 09/02/17 Cephalexin [Keflex] 500 mg PO Q8 #12 cap 11/20/17 Hydrocodone/Acetaminophen [[place] 5-325 Tablet] 1 ea PO Q4H PRN PRN 7 Days #20 tab 11/20/17 The following prescriptions were given: Hydrocodone/Acetaminophen [[place] 5-325 Tablet] 1 ea PO Q4H PRN PRN 7 Days #20 tab PRN Reason: Pain Cephalexin [Keflex] 500 mg PO Q8 #12 cap Primary Care Physician: Song Ridley MD [Primary Care Provider] - Please Follow Up With: Ambrosio Shultz MD When: SaturdayDecember 09 at 3:00pm
--- NOTE | 2017-11-20 17:41 | DCINST_ITS ---
Discharge Diet: Light diet - advance as tolerated Discharge Activity: Return to Normal Activity, May not drive while taking narcotic pain medications. Return to work on:: 11/22/17 May shower in (days): 1 Call your doctor if you observe: Fever of 101 or Higher Allergies/Adverse Reactions: Allergies bupropion HCl [From Wellbutrin] Allergy (Verified 11/19/17 19:49) Hives carbamazepine [From Tegretol] Allergy (Verified 11/19/17 19:49) Hives morphine Adverse Reaction (Verified 11/19/17 19:49) Other PT REPORTS MAKES HER VERY IRRITABLE Medications to take at Discharge Acetaminophen [Tylenol] 325 mg PO Q4H PRN PRN 12/05/16 Hydroxyzine Pamoate [Vistaril] 50 mg PO BID PRN PRN 06/26/17 Sertraline HCl [Zoloft] 100 mg PO QHS 06/26/17 Ibuprofen [Motrin] 600 mg PO Q6H PRN 07/24/17 Gabapentin [Neurontin] 300 mg PO BIDCM 08/14/17 Cranberry Conc/Ascorbic Acid [Cranberry Plus Vitamin C Sftgl] 2 ea PO DAILY 09/19 Tamsulosin HCl [Flomax] 0.4 mg PO DAILY@1730 PRN 09/02/17 Cephalexin [Keflex] 500 mg PO Q8 #12 cap 11/20/17 Hydrocodone/Acetaminophen [[place] 5-325 Tablet] 1 ea PO Q4H PRN PRN 7 Days #20 tab 11/20/17 The following prescriptions were given: Hydrocodone/Acetaminophen [[place] 5-325 Tablet] 1 ea PO Q4H PRN PRN 7 Days #20 tab PRN Reason: Pain Cephalexin [Keflex] 500 mg PO Q8 #12 cap Primary Care Physician: Song Ridley MD [Primary Care Provider] - Please Follow Up With: Ambrosio Shultz MD When: SaturdayDecember 09 at 3:00pm
[2017-11-20] MEDS: HYDROcodone Bitartrate/Apap 5/325 Tablet PO (17:50)
== END 2017-11-20 18:00 | disposition home or self-care (01) ==
LOC: ED 19:45 → MS2 19:52
PROVIDERS: Admitting Provider Urology; Emergency Provider Emergency Medicine; Family Provider Family Medicine; PCP Family Medicine; Visit Provider Urology
PROC: (CPT 52332; principal; 2017-11-20 08:10)
DX: N13.1 Hydronephrosis with ureteral stricture, not elsewhere classified (principal); Z90.710 Acquired absence of both cervix and uterus; Z87.442 Personal history of urinary calculi; Z87.891 Personal history of nicotine dependence; F41.9 Anxiety disorder, unspecified; Z79.899 Other long term (current) drug therapy; G89.29 Other chronic pain; R10.2 Pelvic and perineal pain
CPT/HCPCS: 00910; 52332; 52341; 74176; 76000; 80048; 81001; 85025; 96361; 96374; 96375; 96376; 99218; 99282; J3010; J7030; A4216; C1726; C1769; C2617; G0378; J2405

== ENCOUNTER 2017-11-24 23:29 | Emergency (ER) | payer MEDICAID, SELFPAY ==
[2017-11-24 23:31] VITALS: BP 159/105; PULSE 129; RESP 17; TEMP 36.1; O2SAT 97; BMI 36.1
--- NOTE | 2017-11-24 23:50 | ED.VISSUMM ---
- ER Visit Summary Date of Service: 11/24/17 Chief Complaint: Abdominal and low back pain status post placement of ureteral stent History of Present Illness: The patient is a 32 F who underwent surgery on November 20 to treat right hydro-nephrosis and hydroureter secondary to right ureteral injury during hysterectomy. She has spoken with Dr. Shultz. Her which fluids and she reported decreased urine output. She states her urine is no longer orange since she is taking Pyridium and is now bloody. She denies fever, chills night sweats. Does complain of nausea without vomiting or diarrhea. She denies dysuria but does complain of frequency, urgency and hematuria. She denies fever, chills night sweats. Denies a ocular, visual or auditory symptoms. She denies any cardiorespiratory symptoms. She denies any skin lesions or rash. She denies headache or weakness. She denies bruising easily or bleeding problems. She denies hives or swelling. Physical Examination: Vital signs remarkable for a heart rate of 129. Blood pressure is 159/105. Head is atraumatic normocephalic. Pupils are equal round reactive. Extraocular muscles are intact. TMs are pearly white with landmarks noted. Nares patent with no drainage. Posterior pharynx without erythema or exudate. Uvula is midline. There is no dysphonia or dysphasia. Trachea is midline. There is no stridor with auscultation of the neck. Heart is rapid and regular without murmur, gallop or rub. S1 and S2 are normal. Lungs are clear to auscultation with good movement of air bilaterally. Abdomen is remarkable for tenderness out of proportion to tactile stimuli on the right. There is right-sided back pain as well to palpation. There are no skin lesions noted. Patient is alert and oriented ?3. There is no motor sensory deficit. Affect is depressed. Test Results: BMP reveals mild hypokalemia, 3.2. Blood sugar slightly elevated 128. UA is remarkable for leukoesterase and blood on macro with no nitrites. Micro reveals 10-25 WBCs greater than 100 RBCs and no bacteria. Emergency Department Course and Treatment: IV was placed and she received 1 L of normal saline since reports decreased urine output. In light of her renal injuries BMP was obtained and a UA. Treatment Plan: Shunt was reassessed at 0045. She still reports discomfort. She does not appear in any discomfort. In light of the fact that her workup is unremarkable and that the stent needs to be in place for 8 weeks and she was discharged to home and instructed follow-up with Dr. Shultz. Disposition: Discharge to home in stable condition with Impression: 1. Hematuria 2. Right ureteral stent causing pain 3. Mild hypokalemia 4. Mild hyperglycemia in a nondiabetic This note was generated with [employer] dictation software. It may contain incorrect words, spelling, and punctuation that were not noted in review of the chart prior to signing ED Disposition - Plan for ED Patient: Disposition: Home or Assisted Living Chief Complaint: Complaint Instructions: Ureteral Stents, ED Hematuria Referrals: Song Ridley MD [Primary Care Provider] - Ambrosio Shultz MD [STAFF PHYSICIAN] - As Needed
[2017-11-24 23:51] LABS: Bacteria 0 SEEN /hpf (None Seen); Mucous, Urine 0 SEEN /hpf (<or=2+); Squamous Epithelial Cells - UA 0 SEEN /hpf (5-10)
[2017-11-24 23:52] LABS: Color, Urine Red (Yellow); Glucose, Dipstick Normal (Normal); Ketone-Dipstick 5 mg/dl (Negative); Leukocyte Esterase-Dipstick 500 /ul (Negative); Nitrite-Dipstick Negative (Negative); Occult Blood-Urine 250 /ul (Negative); Protein-Dipstick 100 mg/dl (Negative); Specific Gravity, Urine 1.015 (1.002-1.030); Urine Bilirubin Dipstick Negative (Negative); Urine Clarity Cloudy (Clear); Urine Urobilinogen 1 mg/dl (Normal)
[2017-11-25] LABS: White Blood Cells 10-25 SEEN /hpf (0-5)
[2017-11-25 00:01] LABS: Amorphous Sediment 1+; Red Blood Cells-Urine > 100 SEEN /hpf (0-5)
[2017-11-25] MEDS: Ketorolac 30 MG/ML Syringe IV (00:20)
[2017-11-25] MEDS: Ondansetron 4 MG/2 ML Vial IV (00:20)
[2017-11-25] MEDS: 0.9% Normal Saline 1,000 ML 1000 ML IV (00:20)
[2017-11-25 00:34] LABS: Anion Gap 9 (5-15); BUN 5 mg/dL (7-18); BUN/Creat Ratio 8.4 RATIO (10-20); Calcium,Total 8.9 mg/dL (8.5-10.1); Chloride 108 mmol/L (98-107); Creatinine, Serum 0.59 mg/dL (0.55-1.02); EST Glomerular Filtration Rate 124 mL/min (>60); Est Glom Filt Rate - Afr Amer 150 mL/min (>60); Estimated Creatinine Clearance 107.26 ml/min; Glucose 128 mg/dL (74-106); Potassium 3.2 mmol/L (3.5-5.1); Sodium Level 143 mmol/L (136-145)
[2017-11-25 00:57] VITALS: BP 130/69; PULSE 94; O2SAT 98
[2017-11-25] MEDS: HYDROcodone Bitartrate/Apap 5/325 Tablet PO (01:05)
== END 2017-11-25 01:07 | disposition home or self-care (01) ==
PROVIDERS: Emergency Provider Emergency Medicine; Family Provider Family Medicine; PCP Family Medicine
DX: T83.84XA Pain due to genitourinary prosthetic devices, implants and grafts, initial encounter (principal); R31.9 Hematuria, unspecified; E87.6 Hypokalemia; R73.9 Hyperglycemia, unspecified; E66.9 Obesity, unspecified; Z79.899 Other long term (current) drug therapy
CPT/HCPCS: 80048; 81001; 96361; 96374; 96375; 99284; J7030; A4216; J2405

== ENCOUNTER → 2017-11-25 14:09 | Outpatient (CLI) | payer MEDICAID, SELFPAY ==
--- NOTE | 2017-11-25 14:27 | RAD_ITS ---
STUDY: X-RAY - ABDOMEN/PELVIS REASON FOR EXAM: Female, 32 years old. Right ureteral stent TECHNIQUE: AP supine and upright views of the abdomen and pelvis. COMPARISON: None. FINDINGS: Right-sided JJ stent noted in satisfactory position. No calcifications are noted overlying the right renal shadow or along the stent itself. There are punctate calcifications overlying the left kidney. There is an unremarkable bowel gas pattern. There is no demonstrated free abdominal air. The visualized liver, spleen and kidneys are grossly normal in size and morphology. Normal soft tissue structures. Normal visualized osseous structures. RAD/Abdomen Single View IMPRESSION: Right-sided JJ stent in satisfactory position No demonstrated calcifications overlying the right renal shadow, or along the stent Calcifications overlying the left renal shadow Electronically Signed: Zia Collado MD at 14:47 EDT , Service support ,
== END ==
PROVIDERS: Family Provider Family Medicine; PCP Family Medicine; Visit Provider Urology
DX: Z87.442 Personal history of urinary calculi (principal)
CPT/HCPCS: 74018

== ENCOUNTER 2017-12-19 20:22 | Emergency (ER) | payer MEDICAID, SELFPAY ==
[2017-12-19 20:23] VITALS: BP 148/86; PULSE 106; RESP 18; TEMP 36.2; O2SAT 100; BMI 36.5
[2017-12-19 20:52] LABS: Mucous, Urine 0 SEEN /hpf (<or=2+)
[2017-12-19 20:56] LABS: Color, Urine Amber (Yellow); Glucose, Dipstick Normal (Normal); Ketone-Dipstick Negative (Negative); Leukocyte Esterase-Dipstick 500 /ul (Negative); Nitrite-Dipstick Positive (Negative); Occult Blood-Urine 250 /ul (Negative); Protein-Dipstick 100 mg/dl (Negative); Urine Bilirubin Dipstick Negative (Negative); Urine Clarity Cloudy (Clear); Urine Urobilinogen 1 mg/dl (Normal)
[2017-12-19 21:13] LABS: Red Blood Cells-Urine > 100 SEEN /hpf (0-5); White Blood Cells >100 SEEN /hpf (0-5)
[2017-12-19 21:18] LABS: Bacteria 2+ /hpf (None Seen)
[2017-12-19 21:21] LABS: Squamous Epithelial Cells - UA 0-5 SEEN /hpf (5-10)
--- NOTE | 2017-12-19 21:52 | CT_ITS ---
STUDY: CT ABDOMEN AND PELVIS WITHOUT CONTRAST REASON FOR EXAM: Female, 32 years old. Left flank pain and hematuria RADIATION DOSAGE (If Supplied By Facility): CTDIvol = ( 14.11 ) mGy, DLP = ( 687.86 ) mGycm TECHNIQUE: Transaxial images were obtained from the dome of the diaphragm to the symphysis pubis without oral contrast, and without intravenous contrast. Sagittal and coronal images were reconstructed. Individualized dose optimization techniques were used for this CT. COMPARISON: 11/19/2017 FINDINGS: The visualized lung bases are unremarkable. The visualized portions of the heart are within normal limits. Normal liver. There are surgical clips in the gallbladder fossa consistent with a prior cholecystectomy. Normal spleen. Normal pancreas. Normal bilateral adrenal glands. Multiple nonobstructing right renal calculi, the largest measuring 3 mm. Transureteral stent on the right. Interval improvement in changes of acute obstructive uropathy on the right. Multiple nonobstructing left renal calculi, the largest measuring 5 mm. Normal visualized stomach. Normal small intestine. Rectal anastomosis. Partial colon resection. There is non-visualization of the appendix. Normal abdominal aorta. Normal inferior vena cava. Normal retroperitoneum. Normal urinary bladder. Upper abdominal wall fat hernia. Umbilical hernia containing small bowel, but without mechanical obstruction at this time. Multiple bone islands in the pelvis. CT/Abdomen/Pelvis without Cont IMPRESSION: Transureteral stent on the right. Improving acute obstructive uropathy on the right. Bilateral nonobstructing renal calculi. No acute obstructive uropathy on the left. Umbilical small bowel hernia without mechanical obstruction at this time. Electronically Signed: Manohar Mann MD at 22:34 EDT Tel , Service support ,
[2017-12-19 22:29] LABS: Absolute Lymphocyte Count 2.52 X10^3/ul (0.83-4.51); Absolute Neutrophil Count 3.5 X10^3/uL (2.0-7.7); Basophil# 0.01 X10^3/uL; Basophil% 0.1 % (0-1); Eosinophils% 1.5 % (0-5); Hematocrit 44.4 % (37-47); Hemoglobin 14.9 g/dl (12.0-15.0); Lymphocyte # 2.52 X10^3/ul (4.0); Lymphocyte % 37.6 % (19-41); Mean Corp Hgb Conc 33.6 g/gl (32-36); Mean Corpuscular Hgb 29.9 pg (27.0-32.0); Mean Platelet Vol. 9.7 fl (6.2-12.0); Monocyte# 0.53 X10^3/uL; Monocyte% 7.9 % (0-10); Neutrophil # 3.53 X10^3/uL (2.7-7.7); Neutrophil % 52.8 % (47-70); Platelet Count 187 K/mm3 (150-450); RBC Distribution Width CV 14.1 % (11.6-14.6); RBC Distribution Width SD 45.5 fl (35.1-43.9); Red Blood Count 4.99 M/mm3 (4.2-5.4); White Blood Count 6.7 K/mm3 (4.4-11.0)
[2017-12-19 22:40] LABS: Anion Gap 7 (5-15); BUN 24 mg/dL (7-18); BUN/Creat Ratio 30.5 RATIO (10-20); Calcium,Total 9.1 mg/dL (8.5-10.1); Chloride 106 mmol/L (98-107); Creatinine, Serum 0.79 mg/dL (0.55-1.02); EST Glomerular Filtration Rate 89 mL/min (>60); Est Glom Filt Rate - Afr Amer 108 mL/min (>60); Estimated Creatinine Clearance 80.11 ml/min; Glucose 86 mg/dL (74-106); Potassium 3.7 mmol/L (3.5-5.1); Sodium Level 140 mmol/L (136-145)
[2017-12-19 22:49] LABS: POSITIVE COUNT NO; POSITIVE DIFFERENTIAL NO; POSITIVE MORPHOLOGY NO
[2017-12-19] MEDS: levoFLOXacin IV 750 MG/150 ML BAG 100 MG IV (22:57)
[2017-12-19] MEDS: HYDROcodone Bitartrate/Apap 5/325 Tablet PO (23:23)
--- NOTE | 2017-12-19 23:38 | ED.VISSUMM ---
- ER Visit Summary Date of Service: 12/19/17 Chief Complaint: Abdominal pain History of Present Illness: The patient is a 32 F who states that she is concerned she has a urinary tract infection and kidney stone. She has a stent in the right ureter. The patient states that she has developed dysuria. She notes hot and cold flashes. She notes that she has had blood in the urine since the stent placement. She follows with Dr. Shultz. Physical Examination: Afebrile vital signs are stable Gen: Well-nourished well-developed Head: Normocephalic atraumatic Eyes: Perrl EOMI ENT: TMs clear no rhinorrhea moist mucous membranes Neck: Supple no lymphadenopathy no JVD nontender CVS: Regular rate rhythm no murmurs normal S1-S2 Respiratory: No distress clear to auscultation bilaterally chest nontender Abdomen: Soft tender to palpation left lower quadrant nondistended normal bowel sounds no masses Back: Nontender Extremity: Nontender no edema Skin: Normal color no rash Neuro: alert orientated ?3 CN II-XII intact normal strength sensation reflexes gait cerebellar Psych: Normal affect normal mood Test Results: Urinalysis is obviously infected 2+ bacteria positive nitrates. 100 white cells greater than 100 red cells. CBC and chemistries negative. Urine culture was ordered. CT the flank shows improving hydronephrosis on the right. No kidney stone noted on the left Emergency Department Course and Treatment: Patient received a dose of Levaquin as she has had Pseudomonas on her urine culture in September. Give her [place] for pain. I spoke with Dr. Shultz will follow-up with the patient on the outpatient basis Impression: 1. Acute UTI This note was generated with [employer] dictation software. It may contain incorrect words, spelling, and punctuation that were not noted in review of the chart prior to signing ED Disposition - Plan for ED Patient: Disposition: Home or Assisted Living Chief Complaint: Flank Pain Instructions: ED UTI Cystitis Female Prescriptions: Levofloxacin [Levaquin] 750 mg PO DAILY #5 tab Phenazopyridine HCl [Pyridium] 200 mg PO TID PRN PRN #10 tab PRN Reason: Pain Referrals: Ambrosio Shultz MD [STAFF PHYSICIAN] - Keep Dre appointment
[2017-12-20 00:04] VITALS: BP 114/63; PULSE 94; RESP 14; O2SAT 97
== END 2017-12-20 00:54 | disposition home or self-care (01) ==
PROVIDERS: Emergency Provider Emergency Medicine; Family Provider Family Medicine; PCP Family Medicine
DX: N39.0 Urinary tract infection, site not specified (principal); Z87.442 Personal history of urinary calculi; Z79.899 Other long term (current) drug therapy
CPT/HCPCS: 74176; 80048; 81001; 85025; 87086; 87088; 96365; 96367; 99284; J7040; J0696; J3490

== ENCOUNTER 2020-11-25 12:54 | Outpatient (RCR) | payer MEDICAID, SELFPAY | END 2021-02-07 23:59 | LOC: IMMUN 12:54 | PROVIDERS: PCP Family Medicine; Visit Provider Family Medicine | DX: Z23 Encounter for immunization (principal) | CPT/HCPCS: 0001A; 0002A; 91300 ==